=== PATIENT | male | born 1945 | race Caucasian/White ===

== ENCOUNTER → 2018-10-23 10:23 | Outpatient (CLI) | payer OTHER, SELFPAY ==
--- NOTE | 2018-10-23 10:30 | CT_ITS ---
STUDY: CT ABDOMEN AND PELVIS WITHOUT CONTRAST REASON FOR EXAM: Male, 73 years old. Left flank pain and history of prosthetic cancer. RADIATION DOSAGE (If Supplied By Facility): CTDIvol = ( 13.88 ) mGy, DLP = ( 686.50 ) mGycm TECHNIQUE: Transaxial images were obtained from the dome of the diaphragm to the symphysis pubis without oral contrast, and without intravenous contrast. Sagittal and coronal images were reconstructed. Individualized dose optimization techniques were used for this CT. COMPARISON: August 19, 2017 FINDINGS: The visualized lung bases are unremarkable. 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 Normal liver. The gallbladder is contracted. Normal spleen. Normal pancreas. Normal bilateral adrenal glands. Normal right kidney. 2 simple cortical cysts on the left measuring up to 1.9 cm. Normal visualized stomach. Normal small intestine. Increased stool throughout the colon. Colonic diverticulosis. Appendix not identified. Normal abdominal aorta. Normal inferior vena cava. Normal retroperitoneum. Normal urinary bladder. Normal abdominal wall. Normal osseous structures. CT/Abdomen/Pelvis without Cont IMPRESSION: No acute disease to explain left flank pain. No radiodense urolithiasis or hydronephrosis. 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 Follow-up cardiac echo recommended nonemergently. Electronically Signed: Chaka Bhatia MD at 16:59 EDT , Service support ,
== END ==
PROVIDERS: Family Provider Pediatrics; PCP Pediatrics
DX: R10.9 Unspecified abdominal pain (principal)
CPT/HCPCS: 74176

== ENCOUNTER → 2020-10-08 11:01 | Outpatient (CLI) | payer MEDICARE, OTHER, SELFPAY ==
[2018-11-27 10:15] VITALS: BMI 29.3
[2020-10-08 14:01] LABS: PSA,Total- Diagnostic 1.97 ng/mL (0.0-4.0)
== END ==
PROVIDERS: PCP Internal Medicine; Referring Provider Urology; Visit Provider Urology
DX: C61 Malignant neoplasm of prostate (principal)
CPT/HCPCS: 36415; 84153; G0103

== ENCOUNTER → 2021-04-17 12:24 | Outpatient (CLI) | payer MEDICARE, OTHER, SELFPAY ==
[2018-11-27 10:15] VITALS: BMI 29.3
[2021-04-17 14:27] LABS: PSA,Total- Diagnostic 1.79 ng/mL (0.0-4.0)
== END ==
PROVIDERS: PCP Internal Medicine; Visit Provider Urology
DX: C61 Malignant neoplasm of prostate (principal)
CPT/HCPCS: 36415; 84153

== ENCOUNTER → 2022-05-05 | Outpatient (CLI) | payer MEDICARE, SELFPAY ==
[2022-05-05 12:27] LABS: PSA,Total- Diagnostic 2.13 ng/mL (0.0-4.0)
== END | disposition home or self-care (01) ==
LOC: LABSPEC 11:03 → LAB 05-06 06:47
PROVIDERS: PCP Internal Medicine; Visit Provider Registered Nurse
DX: C61 Malignant neoplasm of prostate (principal)
CPT/HCPCS: 36415; 84153

== ENCOUNTER → 2023-06-16 | Outpatient (CLI) | payer MEDICARE, SELFPAY ==
--- NOTE | 2023-06-16 09:30 | PET_ITS ---
EXAMINATION: F 18 PSMA-Pylarify PET-CT INDICATIONS: An 88-year-old male with history of primary prostate carcinoma presenting for restaging examination. COMPARISON: None available. INDEX LESION SIZE SUV PROMISE SCORE INTERPRETATION Prostate gland base left of midline 7.9 mm 5.2 2 Fulfills quantitative criteria for viable neoplasm. NON-INDEX LESION SIZE SUV PROMISE SCORE INTERPRETATION Bilateral thoracic perihilum, left periclavicular region 4.1 max 1 Quantitative criteria for viable neoplasm are not fulfilled. TECHNIQUE: Following the intravenous administration of 9.86 mCi of PSMA-Pylarify via the left antecubital fossa, image acquisitions of the head, neck, chest, abdomen and pelvis to the level of the mid thigh at 73 minutes post-tracer distribution reveal: The examination was interpreted using the EANM (Frederick et al., Journal of Nuclear Medicine Molecular Imaging 44:1622, 2017) and PROMISE (Imani et al., Journal of Nuclear Medicine 59:469, 2018) interpretive criteria. HEIGHT: 69 inches. WEIGHT: 175 lbs. PSMA expression score PROMISE criteria: High (3): SUV ? parotid-salivary gland, intermediate (2): SUV ? liver, low (1): > blood pool, < liver, (0): < blood pool. SUV reference values: Parotid glands: 33.63 Normal liver parenchyma: 5.2 Blood pool: 1.8 FINDINGS: Head/Neck: Symmetric radiopharmaceutical concentration is defined in the bilateral parotid and submandibular glands, the nasal cavity. There is no evidence of abnormal increased uptake within the context of cranial vault. CHEST: Facilitated uptake is noted in the left periclavicular region and bilateral thoracic perihilum generating a calculated maximum standard uptake value of 4.1. The PROMISE score is 1. Cursory chest CT findings are as follows. Atherosclerotic calcification is defined in the thoracic aorta without evidence of dilatation, aneurysm formation. Coronary arterial calcification is observed. Bilateral axillary and mediastinal soft densities are nonglucose avid. There are no parenchymal densities-nodules defined in the right and left hemithorax with quantitatively significant increased glucose concentration. Abdomen/Pelvis: Enhanced radiotracer distribution is defined in the base of the prostate gland to the left of midline generating a calculated maximum standard uptake value of 5.2. The PROMISE score is 2. The maximum axial diameter of the metabolic abnormality is 7.9 mm. Physiologic tracer uptake is noted in the hepatic and splenic parenchyma, visualized intestinal tract, the bilateral renal units, and urinary bladder. The abdomen and pelvis CT findings are as follows. Right and left inguinal soft tissue densities are non-radiopharmaceutical avid. Calcification is noted within the base of the prostate gland to the right and left of midline. There is atherosclerotic calcification defined in the abdominal aorta without evidence of dilatation-aneurysm formation. Pelvic arterial calcification is defined. Cortical and exophytic cyst formation is defined in the right kidney. Colonic diverticulosis is encountered without radiographic evidence of diverticulitis. Skeletal: Degenerative changes defined in the cervical, thoracic and lumbar spine demonstrate no evidence of radiopharmaceutical hypermetabolism. PET/PET/CT Tumor Limited Initial IMPRESSION: 1. ABNORMAL EXAMINATION INDICATIVE OF MALIGNANT-VIABLE NEOPLASM. 2. Increased radiopharmaceutical concentration noted in the prostate gland fulfills quantitative criteria for malignant transformation. (Eiber et al., Journal of Nuclear Medicine 59:469, 2018) 3. Facilitated noted in the bilateral thoracic perihilum and left supraclavicular region does not fulfill quantitative criteria for viable neoplasia. Electronic Signature Jamie Mckeon D.O. Accurate Quantification of SUVs and standardized PROMISE scores for this report are calculated using the exclusive [employer], ([place] Patent No. [id number] [id number] [phone] [phone] [phone] [place] patent [phone] ). Standardization and correction of the FDG SUV metric exclusively available with [employer] intellectual property, allow for vendor non-specific objective quantitative sequential FDG PET-CT comparison and otherwise unobtainable optimization of the sensitivity and specificity of the examination. https://[employer] ([employer] Electronically Signed: Jamie Mckeon DO at 22:56 EST ,
== END | disposition home or self-care (01) ==
LOC: ONC 09:19
PROVIDERS: PCP Internal Medicine; Referring Provider Urology; Visit Provider Urology
DX: C61 Malignant neoplasm of prostate (principal); R97.21 Rising PSA following treatment for malignant neoplasm of prostate
CPT/HCPCS: 78814; A9595

== ENCOUNTER → 2023-12-29 | Outpatient (CLI) | payer MEDICARE, SELFPAY ==
[2023-12-29 14:15] LABS: PSA,Total- Diagnostic 0.11 ng/mL (0.0-4.0)
== END | disposition home or self-care (01) ==
LOC: LAB 13:19
PROVIDERS: PCP Internal Medicine; Referring Provider Urology; Visit Provider Urology
DX: C61 Malignant neoplasm of prostate (principal)
CPT/HCPCS: 36415; 84153

== ENCOUNTER → 2024-01-26 | Outpatient (CLI) | payer MEDICARE, SELFPAY ==
[2024-01-26 12:34] LABS: Absolute Lymphocyte Count 0.94 X10^3/uL (0.83-4.51); Absolute Neutrophil Count 3.2 X10^3/uL (2.0-7.7); Basophil# 0.04 X10^3/uL; Basophil% 0.8 % (0-1); Eosinophil# 0.29 X10^3/uL; Eosinophils% 5.7 % (0-5); Hematocrit 40.9 % (40-54); Lymphocyte # 0.94 X10^3/ul (0.83-4.51); Lymphocyte % 18.6 % (19-41); Mean Corp Hgb Conc 31.8 g/dL (32-36); Mean Corpuscular Hgb 28.5 pg (27.0-32.0); Mean Corpuscular Volume 89.7 fL (80-94); Mean Platelet Vol. 9.7 fl (6.2-12.0); Monocyte# 0.58 X10^3/uL; Monocyte% 11.5 % (0-10); NRBC Flagged by Analyzer 0 % (0-5); Neutrophil # 3.19 X10^3/uL (2.7-7.7); Neutrophil % 63.2 % (47-70); Platelet Count 207 K/mm3 (150-450); RBC Distribution Width CV 13.5 % (11.6-14.6); RBC Distribution Width SD 44.2 fl (35.1-43.9); Red Blood Count 4.56 M/mm3 (4.6-6.2); White Blood Count 5.1 K/mm3 (4.4-11.0)
[2024-01-26 12:47] LABS: AST(SGOT) 13 U/L (15-37); Alanine Aminotransfer ALT/SGPT 19 U/L (16-61); Albumin, Serum 3.4 g/dL (3.2-5.0); Alkaline Phosphatase 100 U/L (45-117); Anion Gap 3 (5-15); BUN 17 mg/dL (7-18); BUN/Creat Ratio 22.5 RATIO (10-20); Calcium,Total 8.8 mg/dL (8.5-10.1); Chloride 108 mmol/L (98-107); Cholesterol 160 mg/dL (200); Creatinine, Serum 0.76 mg/dL (0.70-1.30); EST Glomerular Filtration Rate 106 mL/min (>60); Est Glom Filt Rate - Afr Amer 128 mL/min (>60); Globulin 3.5 g/dL (2.2-4.2); Glucose 88 mg/dL (74-106); High Density Lipoprotein 46 mg/dL; Potassium 4.3 mmol/L (3.5-5.1); Protein, Total 6.9 g/dL (6.4-8.2); Sodium Level 140 mmol/L (136-145); Triglycerides 69 mg/dL; Very Low Density Lipoprotein 14 mg/dL (5-40)
[2024-01-26 13:07] LABS: Vitamin B12 > 2000 pg/mL (211-911); Vitamin D,25 Hydroxy 74.6 ng/mL
== END | disposition home or self-care (01) ==
LOC: BIMLAB 08:10
PROVIDERS: PCP Internal Medicine; Referring Provider Internal Medicine; Visit Provider Internal Medicine
DX: Z13.6 Encounter for screening for cardiovascular disorders (principal); E55.9 Vitamin D deficiency, unspecified
CPT/HCPCS: 36415; 80053; 80061; 82306; 82607; 85025

== ENCOUNTER → 2024-07-20 | Outpatient (CLI) | payer MEDICARE, SELFPAY ==
[2024-07-20 13:00] LABS: PSA,Total- Diagnostic 1.79 ng/mL (0.0-4.0)
== END | disposition home or self-care (01) ==
LOC: LAB 12:22
PROVIDERS: PCP Internal Medicine; Referring Provider Urology; Visit Provider Urology
DX: C61 Malignant neoplasm of prostate (principal)
CPT/HCPCS: 36415; 84153

== ENCOUNTER → 2025-01-18 | Outpatient (CLI) | payer MEDICARE, SELFPAY ==
[2025-01-18 13:31] LABS: PSA,Total- Diagnostic 1.67 ng/mL (0.00-4.00)
== END | disposition home or self-care (01) ==
LOC: LAB 12:03
PROVIDERS: PCP Internal Medicine; Referring Provider Urology; Visit Provider Urology
DX: C61 Malignant neoplasm of prostate (principal)
CPT/HCPCS: 36415; 84153

== ENCOUNTER → 2025-07-14 | Outpatient (CLI) | payer MEDICARE, SELFPAY ==
[2025-07-14 13:46] LABS: PSA,Total- Diagnostic 1.88 ng/mL (0.00-4.00)
== END | disposition home or self-care (01) ==
LOC: LAB 11:40
PROVIDERS: PCP Internal Medicine; Referring Provider Nurse Practitioner; Visit Provider Nurse Practitioner
DX: G62.9 Polyneuropathy, unspecified (principal); E11.9 Type 2 diabetes mellitus without complications; E78.5 Hyperlipidemia, unspecified; D17.9 Benign lipomatous neoplasm, unspecified
CPT/HCPCS: 36415; 84153